=== PATIENT | female | born 1960 | race Caucasian/White ===

== ENCOUNTER → 2019-02-10 | Outpatient (CLI) | payer OTHER ==
[~2019-02-10] MED LIST: CHOL10002 PO; FOLI1 PO; LEVSOD150 PO; MEDR10 PO; METTREX2.5 PO; ZESTORETIC 20-121 EA PO
[2019-02-12 15:06] LABS: HPV 16 Negative (Negative); HPV 18 Negative (Negative); HPV OTHER HR TYPES Negative (Negative)
== END | disposition home or self-care (01) ==
LOC: LAB SHORT 12:12 → LAB 12:12
PROVIDERS: Nurse Practitioner Obstetrics & Gynecology
DX: Z01.419 Encounter for gynecological examination (general) (routine) without abnormal findings (principal)
CPT/HCPCS: 87624; G0123

== ENCOUNTER 2019-04-30 12:27 | Day surgery (SDC) | payer OTHER ==
[~2019-04-30] VITALS: Ht 165.1 cm; Wt 117.0 kg
[~2019-04-30 12:27] MED LIST changes: +Bactrim Ds Tab1 EACH PO; +Percocet 5-3251 EACH PO; +XARELTO20 MG PO
--- NOTE | 2019-04-30 13:07 | NUR ---
PT ADMITTED TO [facility]. AGREES WITH PLANNED SURGER. LUNG SOUNDS CLEAR. NOZIN TO NARES BILATERALLY.
--- NOTE | 2019-04-30 14:11 | NUR ---
PT UP TO BATHROOM TO VOID.
--- NOTE | 2019-04-30 14:59 | NUR ---
FILAMENT SHAPER REPORT COMPLETED AT BEDSIDE WITH BARBARA RAYMUNDO RN.
--- NOTE | 2019-05-01 04:36 | NUR ---
SHIFT SUMMARY: PT POD #1 FOR LEFT TOTAL KNEE. A&O X4. VS WNL T/O SHIFT. AQUACEL AND JUSTYNA WRAP CDI WITH POLAR PACK IN PLACE. PT OUT OF BED TO BATHROOM W/FWW +1 MINIMAL ASSIST. VOIDING WELL. PT REPORTS BOTTOM OF LEFT FOOT STILL NUMB FROM SPINAL ANESTHESIA. PAIN MANAGED WITH SCHEDULED TORADOL AND TYLENOL. GIVEN 5MG DEAN ONCE. MARICEL REG DIET. DENIES N/V. SALINE LOCKED.
[2019-05-01 05:18] LABS: BASOPHILS ABSOLUTE AUTO 0.04 K/mm3 (0.00-0.23); BASOPHILS PERCENT AUTO 1 % (0-2); EOSINOPHILS ABSOLUTE AUTO 0.12 K/mm3 (0.00-0.68); EOSINOPHILS PERCENT AUTO 2 % (0-6); Hematocrit 33.8 % (33.0-51.0); Hemoglobin 10.9 g/dL (11.5-16.0); IMMATURE GRAN ABSOLUTE AUTO 0.03 K/mm3 (0.00-0.10); IMMATURE GRAN PERCENT AUTO 0 % (0-1); LYMPHOCYTES ABSOLUTE AUTO 0.68 K/mm3 (0.84-5.20); LYMPHOCYTES PERCENT AUTO 9 % (21-46); MONOCYTES ABSOLUTE AUTO 0.97 K/mm3 (0.16-1.47); MONOCYTES PERCENT AUTO 13 % (4-13); Mean Corpuscular HGB Conc 32.2 g/dL (31.5-36.5); Mean Corpuscular Volume 90 fL (80-100); Mean Platelet Volume 8.8 fL (9.1-12.4); NEUTROPHILS ABSOLUTE AUTO 5.62 K/mm3 (1.96-9.15); NEUTROPHILS PERCENT AUTO 75 % (41-73); Platelet Count 327 K/mm3 (150-400); RDW Coefficient Variation 14.3 % (11.7-14.2); Red Blood Cell Count 3.76 M/mm3 (3.80-5.20); White Blood Cell Count 7.46 K/mm3 (4.00-11.30)
[2019-05-01 05:45] LABS: Anion Gap 6 mmol/L (6-16); Blood Urea Nitrogen 18 mg/dL (8-24); Bun/Creatinine Ratio 19.6 (12.0-20.0); CO2, Blood 26 mmol/L (21-32); Calcium, Blood 8.5 mg/dL (8.5-10.1); Chloride, Blood 108 mmol/L (98-108); Creatinine, Blood 0.92 mg/dL (0.40-1.00); Glomerular Filtration Rate >60 (60-); Glucose, Blood 114 mg/dL (70-99); Sodium, Blood 140 mmol/L (136-145)
[2019-05-01] MEDS ORDERED: Percocet 5-3251 EACH PO (10:17)
[2019-05-01] MEDS ORDERED: XARELTO15 MG PO (10:17)
--- NOTE | 2019-05-01 12:40 | NUR ---
PATIENT DISCHARGED WITH FAMILY AT THIS TIME. PATIENT HAD R TKA 10 WEEKS AGO, STATES FAMILIAR WITH D/C INSTRUCTIONS RE: WOUND CARE, MEDS, ACTIVITY, F/U APPT, ETC. PATIENT STATES PAIN WELL CONTROLLED. TOLERATING PO. VOIDING. NO C/O AT THIS TIME.
== END 2019-05-01 12:45 | disposition home or self-care (01) ==
LOC: ORSCMMR 12:27 → SURS 12:27 → ORD 15:00 → ORSCMMR 15:00 → SURS 18:17 → ORSCMMR 05-01 12:45
PROVIDERS: Orthopaedic Surgery
PROC: 0SRD0JA Replacement of Left Knee Joint with Synthetic Substitute, Uncemented, Open Approach (ICD-10-PCS; principal; 2019-04-30 15:00)
DX: M17.12 Unilateral primary osteoarthritis, left knee (principal); Z01.818 Encounter for other preprocedural examination; I10 Essential (primary) hypertension; E03.9 Hypothyroidism, unspecified; Z79.01 Long term (current) use of anticoagulants; Z79.899 Other long term (current) drug therapy; E66.01 Morbid (severe) obesity due to excess calories; Z68.41 Body mass index [BMI] 40.0-44.9, adult
CPT/HCPCS: 36415; 73560-LT; 80048; 83735; 85025; 86850; 86900; 86901; 88300; 97110; 97116; 97162; 97530; C1776; J0171; J0690; J0735; J1885; J2250; J2704; J2795; J7120

== ENCOUNTER 2022-05-10 09:08 | Day surgery (SDC) | payer OTHER ==
[~2022-05-10] VITALS: Ht 167.6 cm; Wt 131.2 kg
[~2022-05-10 09:08] MED LIST changes: +XARELTO15 MG PO
[2022-05-10] MEDS ORDERED: XELJANZ5 MG (09:57)
[2022-05-10] MEDS ORDERED: Calcium Carbon500 MG (09:59)
== END 2022-05-10 11:19 | disposition home or self-care (01) ==
LOC: ORSCSDS 09:08
PROVIDERS: Surgery
PROC: 0DJD8ZZ Inspection of Lower Intestinal Tract, Via Natural or Artificial Opening Endoscopic (ICD-10-PCS; principal; 2022-05-10 10:30)
DX: Z12.11 Encounter for screening for malignant neoplasm of colon (principal); Z86.010 Personal history of colon polyps; I10 Essential (primary) hypertension; E03.9 Hypothyroidism, unspecified; E66.01 Morbid (severe) obesity due to excess calories; Z68.42 Body mass index [BMI] 45.0-49.9, adult; K21.9 Gastro-esophageal reflux disease without esophagitis; Z85.850 Personal history of malignant neoplasm of thyroid; I87.2 Venous insufficiency (chronic) (peripheral); M06.9 Rheumatoid arthritis, unspecified; Z79.899 Other long term (current) drug therapy
CPT/HCPCS: J2704; J7120